=== PATIENT | female | born 1955 | race Caucasian/White ===

== ENCOUNTER 2016-09-30 17:29 | Inpatient (IN) | payer MEDICAID ==
[2016-09-30] MEDS ORDERED: NORMAL SALINE 1000 ML 1,000 ML IV ONE (17:52)
[2016-09-30] MEDS ORDERED: CEFTRIAXONE 1 GM/D5W RTU 50 ML IV ONE (17:52)
--- NOTE | 2016-09-30 18:05 | ER Document Report ---
ED General - General Stated Complaint: DIFFICULTY BREATHING Mode of Arrival: Medic Information source: Patient Notes: 61-year-old female presents with complaints of not feeling well with left flank pain. Patient admits shortness of breath denies any nausea vomiting. - HPI Onset: Just prior to arrival Onset/Duration: Sudden Quality of pain: Achy Severity: Mild Pain Level: 1 Associated symptoms: Fever, Shortness of breath, Other - Left flank pain Exacerbated by: Denies Relieved by: Denies Similar symptoms previously: No Recently seen / treated by doctor: No - Related Data Home Medications: Current Home Medications Albuterol Sulfate [Proair HFA] 2 puff IH Q6HP PRN 09/30/16 [History] Alendronate Sodium [Fosamax 70 mg Tablet] 1 tab PO MO 09/30/16 [History] Valsartan/Hydrochlorothiazide [Diovan Hct 160-12.5 mg Tab] 1 tab PO DAILY [History] Past Medical History - Social History Smoking Status: Never Smoker Cigarette use (# per day): No Chew tobacco use (# tins/day): No Smoking Education Provided: No Family History: Reviewed & Not Pertinent Review of Systems - Review of Systems Notes: REVIEW OF SYSTEMS: CONSTITUTIONAL : Admits fever EENT: Denies eye, ear, throat, or mouth pain or symptoms. Denies nasal or sinus congestion or discharge. Denies throat, tongue, or mouth swelling or difficulty swallowing. CARDIOVASCULAR: Denies chest pain. Denies palpitations or racing or irregular heart beat. Denies ankle edema. RESPIRATORY: Admits to left flank pain with shortness of breath GASTROINTESTINAL: Denies abdominal pain or distention. Denies nausea, vomiting , or diarrhea. Denies blood in vomitus, stools, or per rectum. Denies black, tarry stools. Denies constipation. GENITOURINARY: Denies difficulty urinating, painful urination, burning, frequency, blood in urine, or discharge. FEMALE GENITOURINARY: Denies vaginal bleeding, heavy or abnormal periods, irregular periods. Denies vaginal discharge or odor. MUSCULOSKELETAL: Admits to left flank pain SKIN: Denies rash, lesions or sores. HEMATOLOGIC : Denies easy bruising or bleeding. LYMPHATIC: Denies swollen, enlarged glands. NEUROLOGICAL: Denies confusion or altered mental status. Denies passing out or loss of consciousness. Denies dizziness or lightheadedness. Denies headache. Denies weakness or paralysis or loss of use of either side. Denies problems with gait or speech. Denies sensory loss, numbness, or tingling. Denies seizures. PSYCHIATRIC: Denies anxiety or stress. Denies depression, suicidal ideation, or homicidal ideation. ALL OTHER SYSTEMS REVIEWED AND NEGATIVE. Dictation was performed using [employer] voice recognition software . PHYSICAL EXAMINATION: GENERAL: Well-appearing, well-nourished and in no acute distress. HEAD: Atraumatic, normocephalic. EYES: Pupils equal round and reactive to light, extraocular movements intact, conjunctiva are normal. ENT: Nares patent, oropharynx clear without exudates. Moist mucous membranes. NECK: Normal range of motion, supple without lymphadenopathy LUNGS: Mild crackles at the bases HEART: Tachycardic ABDOMEN: Left CVA tenderness Female : deferred Musculoskeletal: Normal range of motion, no pitting or edema. No cyanosis. NEUROLOGICAL: right sided deficit chronic PSYCH: Normal mood, normal affect. SKIN: Warm, Dry, normal turgor, no rashes or lesions noted. Course - Re-evaluation Re-evalutation: 09/30/16 18:04 Patient meets SIRS criteria with fever or tachycardia on arrival, lab work imaging are pending 09/30/16 19:22 LLL pneumonia noted, pt with wbc count of 22, already started on antibiotics , will admit to hospitalist service 09/30/16 19:43 Dr Bret hunter , 09/30/16 19:51 - Laboratory Result Diagrams: 09/30/16 18:04 09/30/16 18:04 Laboratory results interpreted by me: 09/30/16 09/30/16 18:04 18:04 WBC 22.0 H Seg Neuts % (Manual) 84 H Lymphocytes % (Manual) 8 L Abs Neuts (Manual) 19.1 H Glucose 150 H - Diagnostic Test Radiology reviewed: Image reviewed, Reports reviewed - Left lower lobe pneumonia Critical Care Note - Critical Care Note Total time excluding time spent on procedures (mins): 34 Comments: 34 minutes of critical care time spent in direct contact evaluating and reevaluating the patient, treating symptoms, reviewing labs and studies and speaking with family and consultants excluding any procedures Discharge - Discharge Clinical Impression: Hypoxemia Sepsis Qualifiers: Sepsis type: sepsis due to unspecified organism Qualified Code(s): A41.9 - Sepsis, unspecified organism Left lower lobe pneumonia Qualifiers: Pneumonia type: due to unspecified organism Qualified Code(s): J18.1 - Lobar pneumonia, unspecified organism Fever Qualifiers: Fever type: due to other condition Qualified Code(s): R50.81 - Fever presenting with conditions classified elsewhere Condition: Fair Disposition: ADMITTED INPATIENT Admitting Provider: Hospitalist Unit Admitted: Telemetry
[2016-09-30 18:31] LABS: VENOUS BLOOD BASE EXCESS 2.2 mmol/L; VENOUS BLOOD HCO3 28.4 mmol/L (20-32); VENOUS BLOOD PCO2 48.7 mmHg (35-63); VENOUS BLOOD PH 7.38 (7.30-7.42)
[2016-09-30 18:36] LABS: PROTHROMBIN TIME 12.8 SEC (11.4-15.4)
[2016-09-30 18:48] LABS: HEMATOCRIT 36.1 % (36.0-47.0); HEMOGLOBIN 12.4 g/dL (12.0-15.5); HGB HCT DIFFERENCE 1.1; MEAN CORPUSCULAR HEMOGLOBIN 29.8 pg (27.0-33.4); MEAN CORPUSCULAR HGB CONC 34.4 g/dL (32.0-36.0); MEAN CORPUSCULAR VOLUME 87 fl (80-97); RED BLOOD COUNT 4.17 10^6/uL (3.72-5.28); RED CELL DISTRIBUTION WIDTH 12.2 % (11.5-14.0)
[2016-09-30 18:58] LABS: ALANINE AMINOTRANSFERASE 18 U/L (9-52); ALKALINE PHOSPHATASE 100 U/L (38-126); ANION GAP 12 (5-19); ASPARTATE AMINO TRANSFERASE 16 U/L (14-36); BILIRUBIN,DIRECT 0.3 mg/dL (0.0-0.4); BILIRUBIN,TOTAL 0.6 mg/dL (0.2-1.3); BLOOD UREA NITROGEN 10 mg/dL (7-20); CALCIUM 9.6 mg/dL (8.4-10.2); CARBON DIOXIDE 27 mmol/L (22-30); CHLORIDE 98 mmol/L (98-107); GLUCOSE 150 mg/dL (75-110); POTASSIUM 4.2 mmol/L (3.6-5.0); SODIUM 137.2 mmol/L (137-145); TOTAL PROTEIN 6.7 g/dL (6.3-8.2)
[2016-09-30 18:59] LABS: BAND NEUTROPHILS % (MANUAL) 3 % (3-5); BASOPHILS % (MANUAL) 0 % (0-2); EOSINOPHILS % (MANUAL) 0 % (0-6); LYMPHOCYTES % (MANUAL) 8 % (13-45); TOTAL CELLS COUNTED 100
[2016-09-30 19:01] LABS: RBC MORPHOLOGY COMMENT NORMO-CYTIC/CHROMIC
[2016-09-30 19:03] LABS: APPEARANCE,URINE CLEAR; BILIRUBIN,URINE NEGATIVE (NEGATIVE); GLUCOSE, URINE NEGATIVE (NEGATIVE); KETONES,URINE NEGATIVE (NEGATIVE); LEUKOCYTE ESTERASE,URINE NEGATIVE (NEGATIVE); NITRITE,URINE NEGATIVE (NEGATIVE); PROTEIN,URINE NEGATIVE (NEGATIVE); URINE SPECIFIC GRAVITY 1.014; UROBILINOGEN,URINE NEGATIVE mg/dL (<2.0)
[2016-09-30] MEDS ORDERED: NORMAL SALINE 1000 ML 1,000 ML IV PRN ×2 (19:22→23:41)
[2016-09-30] MEDS ORDERED: IPRATROPIUM/ALBUTEROL 0.5-2.5 MG/3 ML AMPUL NEB ONE (23:21)
[2016-09-30] MEDS ORDERED: ACETAMINOPHEN 325 MG TABLET PO PRN (23:39)
[2016-09-30] MEDS ORDERED: ALBUTEROL SULFATE 0.083% NEB 2.5 MG/3 ML AMPUL NEB PRN (23:39)
[2016-09-30] MEDS ORDERED: GUAIFENESIN SYRP 200 MG/10 ML UDC PO PRN (23:39)
[2016-09-30] MEDS ORDERED: AZITHROMYCIN 500 MG in DEXTROSE 5%-WATER 250 ML IV SCH (23:45)
[2016-10-01] MEDS ORDERED: AZITHROMYCIN INJ 500 MG VIAL IV PRN
[2016-10-01 00:01] LABS: ADD ON TESTING BLD IN LAB ACKNOWLEDGE
[2016-10-01] MEDS ORDERED: METHYLPREDNISOLONE INJ 40 MG/1 ML SDV IV ONE (00:01)
[2016-10-01] MEDS ORDERED: IPRATROPIUM/ALBUTEROL 0.5-2.5 MG/3 ML AMPUL NEB ONE (00:01)
[2016-10-01 00:17] LABS: MAGNESIUM 1.4 mg/dL (1.6-2.3)
[2016-10-01 00:18] LABS: VENOUS BLOOD BASE EXCESS -1.1 mmol/L; VENOUS BLOOD HCO3 23.2 mmol/L (20-32); VENOUS BLOOD PCO2 37.2 mmHg (35-63); VENOUS BLOOD PH 7.41 (7.30-7.42)
--- NOTE | 2016-10-01 00:19 | PDOC H&P ---
History of Present Illness Admission Date/PCP: 09/30/16 20:00 Local physician. Patient moved to the area from [place] 6 months ago. Patient complains of: Left flank pain History of Present Illness: RONALD RAMOS is a 61 year old female with underlying hypertension, and easy bruising, who presents to the emergency room for evaluation of somewhat abrupt onset of sharp left-sided left flank/lateral chest wall pain approximately 1 PM. Awoke this morning feeling as though she may have had a cold. Onset of pain as noted above, which worsens with coughing or certain movements. Productive cough since the onset of symptoms. Denies nausea vomiting, fever or chills. Normally does not wheeze or cough. Denies any chronic pulmonary disease including sleep apnea, COPD or asthma, but does use a when necessary albuterol inhaler on a rare basis. Rare tobacco use. No previous episodes of pneumonia. Sick contacts. Has not had a flu vaccination this year. Patient has been discussed with emergency room physician who evaluated the patient. . Laboratory results are listed in [facility] and are reviewed. X-ray summary results are listed below, with full report(s) reviewed. . EKG reviewed. No prior EKG available for comparison. Social history/personal habits: . Lives with son. Rare tobacco use. No alcohol or illicit drug use. 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 Allergies/adverse reactions NKDA. Home medications Home medications initially autopopulated into knowNormal may not accurately reflect patient's true medications, dosages, and/or frequencies. REVIEW OF SYSTEMS: Constitutional: No fever or chills. Eyes: Wears glasses. ENT: No swallowing problems or complaints. No hearing problems or complaints. Pulmonary: See history and present illness. Cardiovascular: See history and present illness. Gastrointestinal: No current complaints, including nausea or vomiting. Skin: No current complaints, including rashes. Hematologic: Easy bruising. Neurologic: See history and present illness. Musculoskeletal: No current complaints, including painful joints. Psychiatric: No current complaints, including anxiety or depression. Endocrine: No current complaints, including polyuria. Genitourinary: No current complaints, including dysuria. PHYSICAL EXAMINATION: Temperature 98.0. 5 feet 3 inches tall. 54.4 kg. BMI 21.3 kg/m. Blood pressure 126/74. Pulse 129 and regular. 99% saturation on 2 L oxygen per nasal cannula. Respirations are 28 and unlabored. Female emergency room nurse Alban is present. Thin chronically ill-appearing female who appears a number of years older than her stated age. Pleasant awake alert and cooperative. Somewhat anxious, although no sushma agitation. Skin is warm and dry. No grossly obvious evidence of rash in areas of skin examined. No subcutaneous nodules palpated. ENT: Hearing grossly normal to normal conversation. Tongue midline on protrusion pink and slightly tacky. Eyes: No scleral icterus. Pupils equal and reactive to light at 4 mm. [place] conjunctivae. Neck is supple and nontender to gentle active range of motion and palpation. Midline trachea. No palpable thyroid nodule mass enlargement or tenderness. Lymphatic: No palpable cervical or clavicular nodes. Neck and lymphatic exams limited by patient body habitus. Psychiatric: Reasonable insight into acute and chronic medical issues. Oriented to time location and why here. Lungs: Auscultation reveals equal breath sounds bilaterally. No use of accessory respiratory muscles. Somewhat coarse breath sounds bilaterally, with perhaps mild brief expiratory wheezing. Cardiovascular: Heart regular rate and rhythm, without gallop murmur or rub. No carotid or abdominal aortic bruits. No ankle or pedal edema. palpable dorsalis pedis pulses. Abdomen: soft, , slightly distended nontender with positive bowel sounds. Unable to adequately evaluate abdomen for masses or organomegaly due to distention. Extremities: Feet are warm and dry. No calf tenderness to compression. No grossly obvious visual evidence of calf swelling. Gentle manipulation of lower extremities fails to reveal any obvious evidence of injury or instability to knees hips or ankles. Neurologic: Moves left upper extremity grossly normally; right upper extremity contracted at the elbow. No hand senior hadoop developer on the right.. Patellar reflexes absent. Absent Babinski. Light touch is intact at left foot; absent on right.. Dorsiflexion and plantarflexion of left foot 5 over 5; no motor function of right foot.. Past Medical History Cardiac Medical History: Reports: Hypertension Denies: Congestive Heart Failure, DVT, Myocardial Infarction, Hyperlipidema, Pulmonary Embolism Pulmonary Medical History: Denies: Asthma, Sleep Apnea EENT Medical History: Reports: Eyes - Glasses Denies: Ears, Throat Neurological Medical History: Reports: Hemorrhagic CVA - History of same, due to ruptured aneurysm, requiring craniotomy. Subsequent right hemiplegia. Denies: Ischemic CVA, Seizures Endocrine Medical History: Denies: Diabetes Mellitus Type 1, Diabetes Mellitus Type 2, Hyperthyroidism, Hypothyroidism Renal/ Medical History: Reports: None GI Medical History: Denies: Cirrhosis, Gastroesophageal Reflux Disease, Hepatitis, Peptic Ulcer Disease Musculoskeltal Medical History: Denies: Arthritis Skin Medical History: Reports: None Psychiatric Medical History: Reports: Tobacco Dependency Denies: Alcohol Dependency, Depression, General Anxiety Disorder, Substance Abuse Hematology: Reports: Other - Easy bruising Infectious Medical History: Denies: Clostridium Difficile, Hepatitis B, Hepatitis C, Methicillin- Resistant Staph Aureus Past Surgical History Past Surgical History: Reports: Other - Craniotomy for ruptured cerebral aneurysm. Social History Information Source: Patient, Emergency Med Personnel, [facility] Records Lives with: Family Smoking Status: Current Some Day Smoker Frequency of Alcohol Use: None Drugs: None - Advance Directive Resuscitation Status: Full Code Surrogate healthcare decision maker:: Son Family History Family History: Reviewed & Not Pertinent, Malignancy Parental Family History Reviewed: Yes Children Family History Reviewed: Yes Sibling(s) Family History Reviewed.: Yes Medication/Allergy Home Medications: RX: Albuterol Sulfate [Proair HFA] 2 puff IH Q6HP PRN 09/30/16 RX: Alendronate Sodium [Fosamax 70 mg Tablet] 1 tab PO MO 09/30/16 RX: Valsartan/Hydrochlorothiazide [Diovan Hct 160-12.5 mg Tab] 1 tab PO DAILY Cefpodoxime Proxetil [Vantin 200 mg Tablet] 1 tab PO Q12 #14 tab 10/04/16 RX: Azithromycin [Zithromax 250 mg Tablet] 500 mg PO QHS #7 tablet 10/04/16 RX: Diltiazem HCl [Cardizem Cd 120 mg Capsule] 1 cap.sr PO Q12 #60 cap.sr Allergies/Adverse Reactions: No Known Allergies Allergy (Unverified 09/30/16 20:35) Physical Exam Vital Signs: Temp Pulse Resp BP Pulse Ox 98.0 F 24 H 126/74 H 99 09/30/16 20:46 09/30/16 23:01 09/30/16 23:01 09/30/16 23:01 Intake & Output 09/29/16 09/30/16 10/01/16 00:59 00:59 00:59 Weight 54.431 kg Results Impressions: Chest X-Ray 09/30/16 17:52 IMPRESSION: LEFT LOWER LOBE AIRSPACE DISEASE CONCERNING FOR PNEUMONIA. RECOMMEND FOLLOWUP RADIOGRAPHS 4 TO 6 WEEKS TO ENSURE RESOLUTION. Assessment & Plan - Diagnosis (1) Left lower lobe pneumonia Qualifiers: Pneumonia type: due to unspecified organism Qualified Code(s): J18.1 - Lobar pneumonia, unspecified organism Is this a current diagnosis for this admission?: YesPlan: Patient will be admitted under COPD exacerbation and pneumonia protocol. Incentive spirometry twice a day. Scheduled DuoNeb's. PRN albuterol nebs Solu-Medrol Prevacid for gastritis prophylaxis. Antibiotics will consist of intravenous Zithromax along with Rocephin. No antibiotic use or hospitalization the last 3 months.. I strongly encouraged patient to notify staff should patient feel that respiratory status is worsening. Patient is a full code. I have strongly encouraged patient not to get out of bed without notifying staff , , to avoid a fall with injury. Knee high SCDs for DVT prophylaxis, along with subcutaneous Lovenox Impression and plans were discussed with patient, who concurs. Time spent in evaluation and management of patient: 63 minutes. (2) HTN (hypertension) Qualifiers: Hypertension type: essential hypertension Qualified Code(s): I10 - Essential (primary) hypertension Is this a current diagnosis for this admission?: Yes (3) Tobacco dependency Is this a current diagnosis for this admission?: Yes (4) COPD exacerbation Is this a current diagnosis for this admission?: Yes - Inpatient Certification Based on my medical assessment, after consideration of the patient's comorbidities, presenting symptoms, or acuity I expect that the services needed warrant INPATIENT care.: Yes I certify that my determination is in accordance with my understanding of Medicare's requirements for reasonable and necessary INPATIENT services [42 CFR 412.3e].: Yes Medical Necessity: Need Close Monitoring Due to Risk of Patient Decompensation, Need For IV Fluids, Need For Continuous Telemetry Monitoring, Need for Nebulizer Therapy and Monitoring of Response, Need for IV Antibiotics, Risk of Complication if Not Cared For in Hospital, Risk of Diagnosis Which Will Require Inpatient Eval/Care/Monitoring Post Hospital Care: D/C or Transfer Summary
[2016-10-01] MEDS ORDERED: INFLUENZA ADLT QUAD (36MOS+) 2016-17 VAC 0.5 ML SYR IM PRN (03:02)
[2016-10-01] MEDS: METHYLPREDNISOLONE INJ 40 MG/1 ML SDV IV SCH ×3 (05:30→21:10)
[2016-10-01] MEDS: LANSOPRAZOLE 30 MG TAB.RAP.DR PO SCH ×2 (05:30→17:53)
[2016-10-01] MEDS: MAGNESIUM SULFATE/D5W 1 GM/100 ML RTUPB IV SCH ×2 (06:11→10:13)
[2016-10-01 07:07] LABS: HEMATOCRIT 33.3 % (36.0-47.0); HEMOGLOBIN 11.3 g/dL (12.0-15.5); HGB HCT DIFFERENCE 0.6; MEAN CORPUSCULAR HEMOGLOBIN 29.7 pg (27.0-33.4); MEAN CORPUSCULAR VOLUME 87 fl (80-97); RED BLOOD COUNT 3.81 10^6/uL (3.72-5.28); RED CELL DISTRIBUTION WIDTH 12.6 % (11.5-14.0); WHITE BLOOD COUNT 23.9 10^3/uL (4.0-10.5)
[2016-10-01 07:12] LABS: BASOPHILS % (MANUAL) 0 % (0-2); EOSINOPHILS % (MANUAL) 0 % (0-6); LYMPHOCYTES % (MANUAL) 2 % (13-45); TOTAL CELLS COUNTED 100
[2016-10-01 07:13] LABS: RBC MORPHOLOGY COMMENT NORMO-CYTIC/CHROMIC; TOXIC VACUOLATION PRESENT
[2016-10-01] MEDS ORDERED: ENOXAPARIN SODIUM INJ 40 MG/0.4 ML DISP.SYRIN SUBCUT SCH (08:00)
[2016-10-01] MEDS: IPRATROPIUM/ALBUTEROL 0.5-2.5 MG/3 ML AMPUL NEB SCH ×3 (09:02→20:25)
[2016-10-01] MEDS: CEFTRIAXONE 1 GM/D5W RTU 50 ML IV SCH (10:13)
--- NOTE | 2016-10-01 10:27 | EKG REPORT ---
SEVERITY:- OTHERWISE NORMAL ECG - SINUS TACHYCARDIA : Confirmed by: Wilder Pompa MD 01-Oct-2016 10:26:36
[2016-10-01] MEDS ORDERED: DILTIAZEM HCL INJ 25 MG/5 ML VIAL IV ONE (15:37)
[2016-10-01] MEDS ORDERED: DILTIAZEM HCL INJ 25 MG/5 ML VIAL ONE (15:47)
--- NOTE | 2016-10-01 15:54 | PDOC PROGRESS REPORT ---
Subjective Progress Note for:: 10/01/16 Subjective:: Reason for visit: Follow-up COPD exacerbation, left lower lobe pneumonia, left- sided chest pain, acute hypoxic respiratory failure, sinus tachycardia Hospital course: For H&P "RONALD RAMOS is a 61 year old female with underlying hypertension, and easy bruising, who presents to the emergency room for evaluation of somewhat abrupt onset of sharp left-sided left flank/lateral chest wall pain approximately 1 PM. Awoke this morning feeling as though she may have had a cold. Onset of pain as noted above, which worsens with coughing or certain movements. Productive cough since the onset of symptoms. Denies nausea vomiting, fever or chills. Normally does not wheeze or cough. Denies any chronic pulmonary disease including sleep apnea, COPD or asthma, but does use a when necessary albuterol inhaler on a rare basis. Rare tobacco use. No previous episodes of pneumonia. Sick contacts. Has not had a flu vaccination this year." She describes to me the left chest wall pain as sharp, stabbing worsened with deep breaths and certain movements like pulling herself up to a seated position with associated breathlessness causing a "catch" in her chest, nonradiating, intermittent. She was treated with BiPAP therapy and has since weaned down to supplement oxygen by nasal cannula. Subjective: Continues to complain of the left-sided chest pain as described above, breathlessness, dyspnea on exertion, wheezing but denies palpitations, nausea, vomiting, headache, dizziness, unilateral weakness, nausea, vomiting, diarrhea. ROS: per HPI plus a total of 10 systems reviewed, pertinent positives and negatives noted above, remaining systems negative. Physical Exam Vital Signs: Temp Pulse Resp BP Pulse Ox 97.6 F 116 H 16 117/52 L 100 10/01/16 11:51 10/01/16 11:51 10/01/16 11:51 10/01/16 11:51 10/01/16 11:51 Intake & Output 09/30/16 10/01/16 10/02/16 06:59 06:59 06:59 Intake Total 450 537 Output Total 200 400 Balance 250 137 Weight 53.9 kg EXAM GENERAL: Mild respiratory distress; well developed, well nourished; no obese; alert and oriented to person, place, time, situation HEENT: normocephalic, atraumatic; no conjunctival injection, no scleral icterus ; oral mucosa moist; RESPIRATORY: Intercostal accessory muscle use, mild increased WOB, poor air entry bilaterally; no rales, rhonchi; bilateral coarse inspiratory crackles with faint end expiratory left greater than right wheeze CARDIO: no JVD; RRR; no systolic murmur; no tachycardia; left lateral chest wall in the mid axillary line is tender to palpation. GI: soft; nondistended; normal bowel sounds; no hepato spleno megaly; no rebound, rigidity, guarding VASCULAR: no carotid bruit; no abdominal bruit; no pallor; 2+ radial, DP pulse ; normal capillary refill EXTREMITIES: no calf tender; no palpable cords in calf; no clubbing, cyanosis , pedal edema PSYCH: normal affect, normal mood SKIN: warm; moist; no petechiae; no telengectasias; no jaundice; no rash Results Laboratory Results: 10/01/16 06:37 10/01/16 10/01/16 00:06 06:37 WBC 23.9 H RBC 3.81 Hgb 11.3 L Hct 33.3 L MCV 87 MCH 29.7 MCHC 34.0 RDW 12.6 Plt Count 248 Seg Neutrophils % Not Reportable Lymphocytes % Not Reportable Monocytes % Not Reportable Eosinophils % Not Reportable Basophils % Not Reportable Absolute Neutrophils Not Reportable Absolute Lymphocytes Not Reportable Absolute Monocytes Not Reportable Absolute Eosinophils Not Reportable Absolute Basophils Not Reportable VBG pH 7.41 VBG pCO2 37.2 VBG HCO3 23.2 VBG Base Excess -1.1 Labs reviewed, significant leukocytosis, no CO2 retention Impressions: Chest X-Ray 09/30/16 17:52 IMPRESSION: LEFT LOWER LOBE AIRSPACE DISEASE CONCERNING FOR PNEUMONIA. RECOMMEND FOLLOWUP RADIOGRAPHS 4 TO 6 WEEKS TO ENSURE RESOLUTION. Status: Image reviewed by me - I agree with radiology there is a shadow about the left lateral cardiac silhouette suggestive of left lower lobe airspace disease Assessment & Plan - Diagnosis (1) Left lower lobe pneumonia Qualifiers: Pneumonia type: due to unspecified organism Qualified Code(s): J18.1 - Lobar pneumonia, unspecified organism Is this a current diagnosis for this admission?: YesPlan: Continue Rocephin and Zithromax, nebulizer therapy, supple O2 (2) COPD exacerbation Is this a current diagnosis for this admission?: YesPlan: Treat as above and continue systemic steroids. (3) Sinus tachycardia Is this a current diagnosis for this admission?: YesPlan: Most likely related to the respiratory distress complicated by albuterol use, review the EKG shows a sinus tachycardia with at least mild right axis deviation and an S wave in lead V1 but no Q wave in 3 or T-wave inversions in 3. Give single dose of Cardizem IV to see if we can slow her down. Continue IV fluids. Nevertheless in retrospect given the tachycardia, hypoxemia and the left lateral chest wall pain the chest x-ray findings could just as easily be a pulmonary infarct. Therefore will send for CTA of the chest PE protocol to further evaluate, this will also give us better delineation of the extent of the pneumonia. If pulmonary embolus is found, unfortunately she cannot be full dose anticoagulated due to history of intracranial hemorrhage. (5) Sepsis Qualifiers: Sepsis type: sepsis due to unspecified organism Qualified Code(s): A41.9 - Sepsis, unspecified organism Is this a current diagnosis for this admission?: YesPlan: Evidenced by tachycardia, leukocytosis and a source. Continue to treat as above. (6) HTN (hypertension) Qualifiers: Hypertension type: essential hypertension Qualified Code(s): I10 - Essential (primary) hypertension Is this a current diagnosis for this admission?: Yes (7) Tobacco dependency Is this a current diagnosis for this admission?: Yes - Time Time Spent with patient: 35 or more minutes Medications reviewed and adjusted accordingly: Yes
[2016-10-01] MEDS: AZITHROMYCIN 500 MG in DEXTROSE 5%-WATER 250 ML IV SCH (21:24)
[2016-10-02] MEDS: METHYLPREDNISOLONE INJ 40 MG/1 ML SDV IV SCH (05:38)
[2016-10-02] MEDS: LANSOPRAZOLE 30 MG TAB.RAP.DR PO SCH ×2 (05:38→21:00)
[2016-10-02 07:07] LABS: HEMATOCRIT 31.7 % (36.0-47.0); HEMOGLOBIN 10.7 g/dL (12.0-15.5); HGB HCT DIFFERENCE 0.4; MEAN CORPUSCULAR HEMOGLOBIN 29.5 pg (27.0-33.4); MEAN CORPUSCULAR HGB CONC 33.9 g/dL (32.0-36.0); MEAN CORPUSCULAR VOLUME 87 fl (80-97); RED BLOOD COUNT 3.63 10^6/uL (3.72-5.28); RED CELL DISTRIBUTION WIDTH 12.8 % (11.5-14.0); WHITE BLOOD COUNT 29.8 10^3/uL (4.0-10.5)
[2016-10-02 07:19] LABS: ANION GAP 11 (5-19); BLOOD UREA NITROGEN 14 mg/dL (7-20); CALCIUM 8.8 mg/dL (8.4-10.2); CARBON DIOXIDE 21 mmol/L (22-30); CHLORIDE 108 mmol/L (98-107); CREATININE RESULT 0.43 mg/dL (0.52-1.25); GLUCOSE 171 mg/dL (75-110); MAGNESIUM 2.5 mg/dL (1.6-2.3); POTASSIUM 3.1 mmol/L (3.6-5.0); SODIUM 140.1 mmol/L (137-145)
[2016-10-02 07:36] LABS: BAND NEUTROPHILS % (MANUAL) 2 % (3-5); BASOPHILS % (MANUAL) 0 % (0-2); EOSINOPHILS % (MANUAL) 0 % (0-6); LYMPHOCYTES % (MANUAL) 3 % (13-45); TOTAL CELLS COUNTED 100
[2016-10-02 07:37] LABS: HYPOCHROMASIA SLIGHT
[2016-10-02] MEDS ORDERED: POTASSI CL 20 MEQ/50 ML RIDER 20 MEQ/50 ML RTUPB IV ONE (08:45)
[2016-10-02] MEDS: IPRATROPIUM/ALBUTEROL 0.5-2.5 MG/3 ML AMPUL NEB SCH ×2 (08:56→14:33)
[2016-10-02] MEDS ORDERED: POTASSIUM CHLORIDE 10 MEQ TABLET.SA PO ONE (09:00)
[2016-10-02] MEDS: CEFTRIAXONE 1 GM/D5W RTU 50 ML IV SCH (09:28)
--- NOTE | 2016-10-02 13:41 | PDOC PROGRESS REPORT ---
Subjective Progress Note for:: 10/02/16 Subjective:: Reason for visit: Follow-up COPD exacerbation, left lower lobe pneumonia, left- sided chest pain, acute hypoxic respiratory failure, sinus tachycardia Hospital course: For H&P "RONALD RAMOS is a 61 year old female with underlying hypertension, and easy bruising, who presents to the emergency room for evaluation of somewhat abrupt onset of sharp left-sided left flank/lateral chest wall pain approximately 1 PM. Awoke this morning feeling as though she may have had a cold. Onset of pain as noted above, which worsens with coughing or certain movements. Productive cough since the onset of symptoms. Denies nausea vomiting, fever or chills. Normally does not wheeze or cough. Denies any chronic pulmonary disease including sleep apnea, COPD or asthma, but does use a when necessary albuterol inhaler on a rare basis. Rare tobacco use. No previous episodes of pneumonia. Sick contacts. Has not had a flu vaccination this year." She describes to me the left chest wall pain as sharp, stabbing worsened with deep breaths and certain movements like pulling herself up to a seated position with associated breathlessness causing a "catch" in her chest, nonradiating, intermittent. She was treated with BiPAP therapy and has since weaned down to supplement oxygen by nasal cannula. CTA chest does not show PE but confirms JOSE and LLL pneumonia. Subjective: reports resolution of the left-sided chest pain as described above, improved breathlessness & dyspnea on exertion, no more wheezing and denies palpitations, nausea, vomiting, headache, dizziness, unilateral weakness, nausea , vomiting, diarrhea. ROS: per HPI plus a total of 10 systems reviewed, pertinent positives and negatives noted above, remaining systems negative. Physical Exam Vital Signs: Temp Pulse Resp BP Pulse Ox 97.7 F 122 H 16 113/57 L 100 10/02/16 12:02 10/02/16 12:02 10/02/16 12:02 10/02/16 12:02 10/02/16 12:02 Intake & Output 10/01/16 10/02/16 10/03/16 06:59 06:59 06:59 Intake Total 450 2580 637 Output Total 200 1400 100 Balance 250 1180 537 Weight 53.9 kg 54.6 kg EXAM GENERAL: NAD; well developed, well nourished; no obese; alert and oriented to person, place, time, situation HEENT: normocephalic, atraumatic; no conjunctival injection, no scleral icterus ; oral mucosa moist; RESPIRATORY: no Intercostal accessory muscle use, no increased WOB, poor air entry bilaterally; no rales, rhonchi; bilateral coarse inspiratory crackles with faint end expiratory left greater than right wheeze CARDIO: no JVD; RRR; no systolic murmur; no tachycardia; no chest wall tenderness to palpation. GI: soft; nondistended; normal bowel sounds; no rebound, rigidity, guarding VASCULAR: no pallor; 2+ radial; normal capillary refill EXTREMITIES: no calf tender; no palpable cords in calf; no clubbing, cyanosis , pedal edema PSYCH: normal affect, normal mood SKIN: warm; moist; no petechiae; no telengectasias; no jaundice; no rash Results Laboratory Results: 10/02/16 06:32 10/02/16 06:32 10/02/16 10/02/16 06:32 06:32 WBC 29.8 H RBC 3.63 L Hgb 10.7 L Hct 31.7 L MCV 87 MCH 29.5 MCHC 33.9 RDW 12.8 Plt Count 236 Seg Neutrophils % Not Reportable Lymphocytes % Not Reportable Monocytes % Not Reportable Eosinophils % Not Reportable Basophils % Not Reportable Absolute Neutrophils Not Reportable Absolute Lymphocytes Not Reportable Absolute Monocytes Not Reportable Absolute Eosinophils Not Reportable Absolute Basophils Not Reportable Sodium 140.1 Potassium 3.1 L Chloride 108 H Carbon Dioxide 21 L Anion Gap 11 BUN 14 Creatinine 0.43 L Est GFR ( Amer) > 60 Est GFR (Non-Af Amer) > 60 Glucose 171 H Calcium 8.8 Magnesium 2.5 H Impressions: Chest X-Ray 09/30/16 17:52 IMPRESSION: LEFT LOWER LOBE AIRSPACE DISEASE CONCERNING FOR PNEUMONIA. RECOMMEND FOLLOWUP RADIOGRAPHS 4 TO 6 WEEKS TO ENSURE RESOLUTION. Chest/Abdomen CTA 10/01/16 00:00 IMPRESSION: 1. Lingular and left upper lobe pneumonia. Minimal infiltrate in the superior segment of the right lower lobe. 2. No pulmonary emboli. Assessment & Plan - Diagnosis (1) Left lower lobe pneumonia Qualifiers: Pneumonia type: due to unspecified organism Qualified Code(s): J18.1 - Lobar pneumonia, unspecified organism Is this a current diagnosis for this admission?: Yes (2) COPD exacerbation Is this a current diagnosis for this admission?: Yes (3) Sinus tachycardia Is this a current diagnosis for this admission?: Yes (5) Sepsis Qualifiers: Sepsis type: sepsis due to unspecified organism Qualified Code(s): A41.9 - Sepsis, unspecified organism Is this a current diagnosis for this admission?: Yes (6) HTN (hypertension) Qualifiers: Hypertension type: essential hypertension Qualified Code(s): I10 - Essential (primary) hypertension Is this a current diagnosis for this admission?: Yes (7) Tobacco dependency Is this a current diagnosis for this admission?: Yes - Time Time Spent with patient: 25-34 minutes - Plan Summary Plan Summary: Her white count is actually rising with a persistent bandemia of unclear significance, no fevers and overall her condition is improved. She remains on high-dose systemic steroids, will decrease and monitor for effect. If her leukocytosis trends down and her condition remains stable she can likely be discharged tomorrow on continued oral antibiotics.
[2016-10-02] MEDS ORDERED: DILTIAZEM HCL INJ 25 MG/5 ML VIAL IV ONE (16:49)
[2016-10-02] MEDS ORDERED: DILTIAZEM HCL/D5W 125 ML IV PRN (16:49)
[2016-10-02] MEDS ORDERED: RINGERS SOLUTION,LACTATED 1,000 ML IV ONE ×2 (16:49→22:30)
[2016-10-02] MEDS ORDERED: DILTIAZEM HCL/D5W 125 MG/125 ML RTUINJ IV ONE (16:58)
[2016-10-02] MEDS ORDERED: DILTIAZEM HCL INJ 25 MG/5 ML VIAL ONE (16:59)
[2016-10-02] MEDS ORDERED: METHYLPREDNISOLONE INJ 40 MG/1 ML SDV IV SCH (22:00)
[2016-10-02] MEDS: AZITHROMYCIN 500 MG in DEXTROSE 5%-WATER 250 ML IV SCH (22:07)
[2016-10-03] MEDS: LANSOPRAZOLE 30 MG TAB.RAP.DR PO SCH ×2 (05:54→16:53)
[2016-10-03 07:23] LABS: HEMOGLOBIN 10.7 g/dL (12.0-15.5); HGB HCT DIFFERENCE 0.1; MEAN CORPUSCULAR HGB CONC 33.5 g/dL (32.0-36.0); MEAN CORPUSCULAR VOLUME 87 fl (80-97); RED BLOOD COUNT 3.69 10^6/uL (3.72-5.28); RED CELL DISTRIBUTION WIDTH 12.9 % (11.5-14.0)
[2016-10-03 07:43] LABS: ANION GAP 13 (5-19); BLOOD UREA NITROGEN 19 mg/dL (7-20); CALCIUM 8.9 mg/dL (8.4-10.2); CARBON DIOXIDE 20 mmol/L (22-30); CHLORIDE 109 mmol/L (98-107); CREATININE RESULT 0.52 mg/dL (0.52-1.25); GLUCOSE 151 mg/dL (75-110); MAGNESIUM 2.5 mg/dL (1.6-2.3); SODIUM 141.6 mmol/L (137-145)
[2016-10-03 07:52] LABS: WHITE BLOOD COUNT 31.9 10^3/uL (4.0-10.5)
[2016-10-03 07:54] LABS: POTASSIUM 4.2 mmol/L (3.6-5.0)
[2016-10-03 08:01] LABS: BAND NEUTROPHILS % (MANUAL) 3 % (3-5); BASOPHILS % (MANUAL) 0 % (0-2); EOSINOPHILS % (MANUAL) 0 % (0-6); HYPOCHROMASIA SLIGHT; LYMPHOCYTES % (MANUAL) 2 % (13-45); POLYCHROMASIA SLIGHT; TOTAL CELLS COUNTED 100; TOXIC GRANULATION 1+; TOXIC VACUOLATION PRESENT
[2016-10-03] MEDS: CEFTRIAXONE 1 GM/D5W RTU 50 ML IV SCH (10:53)
[2016-10-03 11:20] LABS: APPEARANCE,URINE CLEAR; BILIRUBIN,URINE NEGATIVE (NEGATIVE); GLUCOSE, URINE NEGATIVE (NEGATIVE); KETONES,URINE NEGATIVE (NEGATIVE); LEUKOCYTE ESTERASE,URINE SMALL (NEGATIVE); NITRITE,URINE NEGATIVE (NEGATIVE); PROTEIN,URINE 30 mg/dL (NEGATIVE); URINE SPECIFIC GRAVITY 1.015; UROBILINOGEN,URINE NEGATIVE mg/dL (<2.0)
[2016-10-03] MEDS: DILTIAZEM HCL 30 MG TABLET PO SCH ×2 (12:09→17:57)
[2016-10-03 12:34] LABS: PATH REVIEW PATHOLOGIST REVIEWED
--- NOTE | 2016-10-03 16:25 | PDOC PROGRESS REPORT ---
Subjective Progress Note for:: 10/03/16 Subjective:: Reason for visit: Follow-up COPD exacerbation, left lower lobe pneumonia, left- sided chest pain, acute hypoxic respiratory failure, sinus tachycardia Hospital course: For H&P "RONALD RAMOS is a 61 year old female with underlying hypertension, and easy bruising, who presents to the emergency room for evaluation of somewhat abrupt onset of sharp left-sided left flank/lateral chest wall pain approximately 1 PM. Awoke this morning feeling as though she may have had a cold. Onset of pain as noted above, which worsens with coughing or certain movements. Productive cough since the onset of symptoms. Denies nausea vomiting, fever or chills. Normally does not wheeze or cough. Denies any chronic pulmonary disease including sleep apnea, COPD or asthma, but does use a when necessary albuterol inhaler on a rare basis. Rare tobacco use. No previous episodes of pneumonia. Sick contacts. Has not had a flu vaccination this year." She describes to me the left chest wall pain as sharp, stabbing worsened with deep breaths and certain movements like pulling herself up to a seated position with associated breathlessness causing a "catch" in her chest, nonradiating, intermittent. This has resolved with treatment of her pneumonia. She was treated with BiPAP therapy and has since weaned down to supplement oxygen by nasal cannula. CTA chest does not show PE but confirms JOSE and LLL pneumonia. Subjective: reports resolution of the left-sided chest pain as described above, improved breathlessness & dyspnea on exertion, no more wheezing and denies palpitations, nausea, vomiting, headache, dizziness, unilateral weakness, nausea , vomiting, diarrhea. She remains tachycardic and her leukocytosis continues to worsen. ROS: per HPI plus a total of 10 systems reviewed, pertinent positives and negatives noted above, remaining systems negative. Physical Exam Vital Signs: Temp Pulse Resp BP Pulse Ox 97.9 F 120 H 16 124/66 100 10/03/16 11:34 10/03/16 11:34 10/03/16 11:34 10/03/16 11:34 10/03/16 11:34 Intake & Output 10/02/16 10/03/16 10/04/16 06:59 06:59 06:59 Intake Total 2580 2623 459 Output Total 1400 1100 200 Balance 1180 1523 259 Weight 54.6 kg 58.2 kg EXAM GENERAL: NAD; well developed, well nourished; no obese; alert and oriented to person, place, time, situation HEENT: normocephalic, atraumatic; no conjunctival injection, no scleral icterus ; oral mucosa moist; alopecia noted again on scalp RESPIRATORY: no Intercostal accessory muscle use, no increased WOB, poor air entry bilaterally; no rales, rhonchi; bilateral coarse inspiratory crackles with faint end expiratory left greater than right wheeze CARDIO: no JVD; RRR; no systolic murmur; no tachycardia; no chest wall tenderness to palpation. GI: soft; nondistended; normal bowel sounds; no rebound, rigidity, guarding VASCULAR: no pallor; 2+ radial; normal capillary refill NEURO: Rt hemiparesis as before EXTREMITIES: no calf tender; no palpable cords in calf; no clubbing, cyanosis , pedal edema PSYCH: normal affect, normal mood SKIN: warm; moist; no petechiae; no telengectasias; no jaundice; no rash Results Laboratory Results: 10/03/16 06:26 10/03/16 06:26 10/03/16 10/03/16 10/03/16 06:26 06:26 10:28 WBC 31.9 H* RBC 3.69 L Hgb 10.7 L Hct 32.0 L MCV 87 MCH 29.0 MCHC 33.5 RDW 12.9 Plt Count 291 Seg Neutrophils % Not Reportable Lymphocytes % Not Reportable Monocytes % Not Reportable Eosinophils % Not Reportable Basophils % Not Reportable Absolute Neutrophils Not Reportable Absolute Lymphocytes Not Reportable Absolute Monocytes Not Reportable Absolute Eosinophils Not Reportable Absolute Basophils Not Reportable Sodium 141.6 Potassium 4.2 D Chloride 109 H Carbon Dioxide 20 L Anion Gap 13 BUN 19 Creatinine 0.52 Est GFR ( Amer) > 60 Est GFR (Non-Af Amer) > 60 Glucose 151 H Calcium 8.9 Magnesium 2.5 H Urine Color YELLOW Urine Appearance CLEAR Urine pH 5.0 Ur Specific Dix 1.015 Urine Protein 30 H Urine Glucose (UA) NEGATIVE Urine Ketones NEGATIVE Urine Blood SMALL H Urine Nitrite NEGATIVE Ur Leukocyte Esterase SMALL H Urine WBC (Auto) 7 Urine RBC (Auto) 26 Impressions: Chest X-Ray 09/30/16 17:52 IMPRESSION: LEFT LOWER LOBE AIRSPACE DISEASE CONCERNING FOR PNEUMONIA. RECOMMEND FOLLOWUP RADIOGRAPHS 4 TO 6 WEEKS TO ENSURE RESOLUTION. Chest/Abdomen CTA 10/01/16 00:00 IMPRESSION: 1. Lingular and left upper lobe pneumonia. Minimal infiltrate in the superior segment of the right lower lobe. 2. No pulmonary emboli. Assessment & Plan - Diagnosis (1) Leukocytosis Qualifiers: Leukocytosis type: bandemia Qualified Code(s): D72.825 - Bandemia Is this a current diagnosis for this admission?: YesPlan: worsening; likely 2/2 infection and complicated by high dose systemic steroids. will d/c steroids and monitor for response. may need hematology consult if fails to improve. send UA and remove agarwal. no diarrhea. (2) Left lower lobe pneumonia Qualifiers: Pneumonia type: due to unspecified organism Qualified Code(s): J18.1 - Lobar pneumonia, unspecified organism Is this a current diagnosis for this admission?: YesPlan: Continue Rocephin and Zithromax, nebulizer therapy, supple O2 (3) COPD exacerbation Is this a current diagnosis for this admission?: Yes (4) Sinus tachycardia Is this a current diagnosis for this admission?: YesPlan: Most likely related to the respiratory distress complicated by albuterol use, review the EKG shows a sinus tachycardia with at least mild right axis deviation and an S wave in lead V1 but no Q wave in 3 or T-wave inversions in 3. CTA of the chest PE protocol was negative for embolism and confirmed the left lobar pneumonia. start po cardizem and monitor response. (6) Sepsis Qualifiers: Sepsis type: sepsis due to unspecified organism Qualified Code(s): A41.9 - Sepsis, unspecified organism Is this a current diagnosis for this admission?: Yes (7) HTN (hypertension) Qualifiers: Hypertension type: essential hypertension Qualified Code(s): I10 - Essential (primary) hypertension Is this a current diagnosis for this admission?: Yes (8) Tobacco dependency Is this a current diagnosis for this admission?: Yes - Time Time Spent with patient: 25-34 minutes Anticipated discharge: Home Within: within 24 hours
[2016-10-03] MEDS: AZITHROMYCIN 500 MG in DEXTROSE 5%-WATER 250 ML IV SCH (21:09)
[2016-10-04] MEDS: DILTIAZEM HCL 30 MG TABLET PO SCH ×3 (05:52→12:12)
[2016-10-04] MEDS: LANSOPRAZOLE 30 MG TAB.RAP.DR PO SCH (05:52)
[2016-10-04 07:04] LABS: HEMATOCRIT 33.6 % (36.0-47.0); HEMOGLOBIN 11.4 g/dL (12.0-15.5); HGB HCT DIFFERENCE 0.6; MEAN CORPUSCULAR HEMOGLOBIN 29.3 pg (27.0-33.4); MEAN CORPUSCULAR HGB CONC 33.9 g/dL (32.0-36.0); MEAN CORPUSCULAR VOLUME 86 fl (80-97); RED CELL DISTRIBUTION WIDTH 12.7 % (11.5-14.0); WHITE BLOOD COUNT 20.5 10^3/uL (4.0-10.5)
[2016-10-04 07:25] LABS: ANION GAP 9 (5-19); BLOOD UREA NITROGEN 14 mg/dL (7-20); CALCIUM 9.5 mg/dL (8.4-10.2); CARBON DIOXIDE 25 mmol/L (22-30); CHLORIDE 110 mmol/L (98-107); CREATININE RESULT 0.49 mg/dL (0.52-1.25); GLUCOSE 82 mg/dL (75-110); POTASSIUM 4.1 mmol/L (3.6-5.0); SODIUM 143.8 mmol/L (137-145)
[2016-10-04 07:57] LABS: BAND NEUTROPHILS % (MANUAL) 1 % (3-5); BASOPHILS % (MANUAL) 0 % (0-2); EOSINOPHILS % (MANUAL) 0 % (0-6); LYMPHOCYTES % (MANUAL) 17 % (13-45); TOTAL CELLS COUNTED 100
[2016-10-04 07:59] LABS: RBC MORPHOLOGY COMMENT NORMO-CYTIC/CHROMIC; TOXIC GRANULATION SLIGHT
[2016-10-04] MEDS: CEFTRIAXONE 1 GM/D5W RTU 50 ML IV SCH (10:19)
[2016-10-04 11:24] VITALS: BP 130/67
--- NOTE | 2016-10-04 13:10 | PDOC DISCHARGE SUMMARY ---
General - Admit/Disc Date/PCP Admission Date/Primary Care Provider: 09/30/16 23:40 Discharge Date: 10/04/16 - Discharge Diagnosis (1) Atrial fibrillation with RVR Is this a current diagnosis for this admission?: YesSummary: rate 100-120 Patient was discharged on Cardizem CD 120 mg twice a day A vascular elliot score was 2 Echocardiogram was not performed during his hospital stay ; patient was referred to cardiology to complete the workup And reevaluate her needs No aspirin was prescribed as patient has a history of intracranial bleed years ago and residual hemiplegia (2) Pneumonia Is this a current diagnosis for this admission?: YesSummary: Lingular and left upper lobe infiltrate patient was discharged on Vantin and Zithromax Patient's oxygenation is adequate on room air (3) Leukocytosis Is this a current diagnosis for this admission?: YesSummary: White blood count is 20,000 and discharge This may be secondary to SIRS Patient will need a follow-up CBC in a month to reevaluate white blood count (4) COPD exacerbation Is this a current diagnosis for this admission?: Yes (5) History of CVA (cerebrovascular accident) Is this a current diagnosis for this admission?: YesSummary: 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 Patient is quite independent, and wheelchair bound (6) Right hemiplegia Is this a current diagnosis for this admission?: Yes - Additional Information Resuscitation Status: Full Code Discharge Diet: As Tolerated Discharge Activity: Activity As Tolerated Home Medications: Albuterol Sulfate [Proair HFA] 2 puff IH Q6HP PRN 09/30/16 Alendronate Sodium [Fosamax 70 mg Tablet] 1 tab PO MO 09/30/16 Valsartan/Hydrochlorothiazide [Diovan Hct 160-12.5 mg Tab] 1 tab PO DAILY Azithromycin [Zithromax 250 mg Tablet] 500 mg PO QHS #7 tablet 10/04/16 Cefpodoxime Proxetil [Vantin 200 mg Tablet] 1 tab PO Q12 #14 tab 10/04/16 Diltiazem HCl [Cardizem Cd 120 mg Capsule] 1 cap.sr PO Q12 #60 cap.sr 10/04/16 History of Present Illness Patient complains of: Chest pain and shortness of breath History of Present Illness: RONALD RAMOS is a 61 year old female with underlying hypertension, and easy bruising, who presents to the emergency room for evaluation of somewhat abrupt onset of sharp left-sided left flank/ lateral chest wall pain approximately 1 PM. Awoke this morning feeling as though she may have had a cold. Onset of pain as noted above, which worsens with coughing or certain movements. Productive cough since the onset of symptoms. Denies nausea vomiting, fever or chills. Normally does not wheeze or cough. Denies any chronic pulmonary disease including sleep apnea, COPD or asthma, but does use a when necessary albuterol inhaler on a rare basis. Rare tobacco use. No previous episodes of pneumonia. Sick contacts. Has not had a flu vaccination this year. Hospital Course Hospital Course: Patient was diagnosed of pneumonia and treated with ceftriaxone and Zithromax During her stay it was noted that she was intermittently in atrial fibrillation with rapid ventricular rate patient. Rate improved with Cardizem by mouth Patient clinically improved greatly and is asymptomatic at discharge A workup was not completed by the time she was discharged and an echocardiogram had not been performed Patient was referred to Dr. Ortiz cardiology for further care Physical Exam Vital Signs: Temp Pulse Resp BP Pulse Ox 98.0 F 98 16 130/67 H 99 10/04/16 11:23 10/04/16 11:23 10/04/16 11:23 10/04/16 11:23 10/04/16 11:23 Intake & Output 10/03/16 10/04/16 10/05/16 00:59 00:59 00:59 Intake Total 1690 2494 320 Output Total 1000 700 550 Balance 690 1794 -230 Weight 54.6 kg 58.2 kg 58.4 kg General appearance: PRESENT: no acute distress Head exam: PRESENT: atraumatic, normocephalic Eye exam: PRESENT: conjunctiva pink, EOMI, PERRLA. ABSENT: scleral icterus Neck exam: ABSENT: carotid bruit, JVD, lymphadenopathy, thyromegaly Respiratory exam: PRESENT: clear to auscultation renea. ABSENT: rales, rhonchi, wheezes Cardiovascular exam: PRESENT: irregular rhythm. ABSENT: systolic murmur Pulses: PRESENT: normal dorsalis pedis pul GI/Abdominal exam: PRESENT: normal bowel sounds, soft. ABSENT: distended, guarding, mass, organolmegaly, rebound, tenderness Neurological exam: PRESENT: alert, awake, oriented to person, oriented to place , oriented to time, oriented to situation, CN II-XII grossly intact. ABSENT: motor sensory deficit Results Laboratory Results: 10/04/16 06:40 10/04/16 06:40 10/04/16 10/04/16 06:40 06:40 WBC 20.5 H RBC 3.90 Hgb 11.4 L Hct 33.6 L MCV 86 MCH 29.3 MCHC 33.9 RDW 12.7 Plt Count 310 Seg Neutrophils % Not Reportable Lymphocytes % Not Reportable Monocytes % Not Reportable Eosinophils % Not Reportable Basophils % Not Reportable Absolute Neutrophils Not Reportable Absolute Lymphocytes Not Reportable Absolute Monocytes Not Reportable Absolute Eosinophils Not Reportable Absolute Basophils Not Reportable Sodium 143.8 Potassium 4.1 Chloride 110 H Carbon Dioxide 25 Anion Gap 9 BUN 14 Creatinine 0.49 L Est GFR ( Amer) > 60 Est GFR (Non-Af Amer) > 60 Glucose 82 Calcium 9.5 09/30/16 18:40 Urine Culture - Final Catheterized Urine NO GROWTH 2 DAYS 09/30/16 18:04 Blood Culture - Preliminary Blood NO GROWTH AFTER 72 HOURS EKG Comments: Initial tracings consistent with sinus tachycardia On patient is in atrial fibrillation at a rate of 100 to 130 Impressions: Chest X-Ray 09/30/16 17:52 IMPRESSION: LEFT LOWER LOBE AIRSPACE DISEASE CONCERNING FOR PNEUMONIA. RECOMMEND FOLLOWUP RADIOGRAPHS 4 TO 6 WEEKS TO ENSURE RESOLUTION. Chest/Abdomen CTA 10/01/16 00:00 IMPRESSION: 1. Lingular and left upper lobe pneumonia. Minimal infiltrate in the superior segment of the right lower lobe. 2. No pulmonary emboli. Plan Discharge Plan: Patient was discharged home ; follow-up with primary care physician as scheduled Follow-up with Dr. Ortiz and Time Spent: Greater than 30 Minutes
[2016-10-04] MEDS ORDERED: AZITHROMYCIN 250 MG TABLET PO SCH (22:00)
== END 2016-10-04 14:01 | disposition home or self-care (01) | DRG 871 ==
LOC: ER 17:29 → UNDOADMIN 20:00 → EH 20:00 → 3S 10-01 02:56
PROVIDERS: ADMIT Family Medicine; ATTEND Family Medicine
PROC: 3E0F73Z Introduction of Anti-inflammatory into Respiratory Tract, Via Natural or Artificial Opening (ICD-10-PCS; principal; 2016-10-01)
PROC: 3E0234Z Introduction of Serum, Toxoid and Vaccine into Muscle, Percutaneous Approach (ICD-10-PCS; 2016-10-04)
DX: A41.9 Sepsis, unspecified organism (principal); J18.1 Lobar pneumonia, unspecified organism; J96.01 Acute respiratory failure with hypoxia; J44.0 Chronic obstructive pulmonary disease with (acute) lower respiratory infection; J44.1 Chronic obstructive pulmonary disease with (acute) exacerbation; I69.351 Hemiplegia and hemiparesis following cerebral infarction affecting right dominant side; R65.20 Severe sepsis without septic shock; I48.91 Unspecified atrial fibrillation; G47.30 Sleep apnea, unspecified; R00.0 Tachycardia, unspecified; I10 Essential (primary) hypertension; F17.200 Nicotine dependence, unspecified, uncomplicated; Z23 Encounter for immunization; Z79.899 Other long term (current) drug therapy; Z80.9 Family history of malignant neoplasm, unspecified
CPT/HCPCS: 36415; 51701; 71010; 71275; 80048; 80053; 81001; 82803; 83605; 83735; 85025; 85610; 87040; 87086; 87804; 90686; 93005; 93010; 94799; 96365; 99291; J0456; J0696; J1650; J2920; J3475; J3480; J3490; J7030; J7060; J7120; J7620